=== PATIENT | female | born 1965 | race Asian ===

== ENCOUNTER → 2016-09-20 | Outpatient (CLI) | payer BC ==
[2006-01-13 07:08] VITALS: TEMP 98.8
== END ==
LOC: MC.RAD 11:16
DX: Z12.31 Encounter for screening mammogram for malignant neoplasm of breast (principal)

== ENCOUNTER → 2018-09-17 | Outpatient (CLI) | payer BC ==
[2006-01-13 07:08] VITALS: TEMP 98.8
== END ==
LOC: MC.RAD 13:09
DX: Z12.31 Encounter for screening mammogram for malignant neoplasm of breast (principal)

== ENCOUNTER → 2021-09-27 | Outpatient (CLI) | payer BC ==
[2006-01-13 07:08] VITALS: TEMP 98.8
== END ==
LOC: MC.RAD 13:26
DX: Z12.31 Encounter for screening mammogram for malignant neoplasm of breast (principal)

== ENCOUNTER 2022-09-22 08:28 | Inpatient (IN) | payer SELFPAY ==
[~2022-09-22] VITALS: Ht 167.6 cm; Wt 61.5 kg
[2022-09-22] VITALS (12 sets, daily range): BP systolic 148–184; BP diastolic 68–83; PULSE 65–80; TEMP 97.9–98.3
[2022-09-22 09:10] LABS: COLLECTION METHOD CLEAN CATCH
[2022-09-22 09:15] LABS: BASO % 0.3 % (0.0-2.0); EOS % 0.1 % (0.0-4.0); GRAN # 7.7 K/mm3 (1.4-6.5); GRAN % 88.6 % (42.2-75.2); HEMATOCRIT 44.4 % (37.0-47.0); HEMOGLOBIN 15.7 g/dl (12.5-16.0); LYMPH # 0.7 K/mm3 (1.2-3.4); LYMPH % 7.4 % (20.0-51.0); MEAN CELL VOLUME 85 fl (80.0-100.0); MEAN CORPUSCULAR HEMOGLOBIN 30 pg (27-31); MEAN CORPUSCULAR HGB CONC 35 g/dl (33.0-37.0); MEAN PLATELET VOLUME 11.1 fl (7.4-10.4); MONO # 0.3 K/mm3 (0.1-0.6); MONO % 3.4 % (1.7-9.3); PLATELET COUNT 153 K/mm3 (130-400); REDCELL DISTRIBUTION WIDTH-CV 12.3 % (11.5-14.5)
[2022-09-22 09:17] LABS: MUCOUS Present (NOT PRESENT); SQUAMOUS EPITHELIAL None Seen /hpf (0-10); URINE BACTERIA None Seen /hpf (NONE SEEN)
[2022-09-22 09:29] LABS: PH 8.5 (5.0-8.5); URINE APPEARANCE Clear (CLEAR/HAZY); URINE BLOOD Negative (NEGATIVE); URINE COLOR Yellow (YELLOW); URINE GLUCOSE TRACE (NEGATIVE); URINE KETONE 1+ (NEGATIVE); URINE NITRATE Negative (NEGATIVE); URINE PROTEIN(semi-quant) 1+ (NEGATIVE); URINE UROBILINOGEN 0.2 E.U/dL (0.2-1.0)
[2022-09-22 09:30] LABS: ALBUMIN 4.7 gm/dL (3.5-5.0); BILIRUBIN,TOTAL 1.3 mg/dL (0.2-1.2); C-REACTIVE PROTEIN 0.11 mg/dL (0.00-0.50); CALCIUM 9.8 mg/dL (8.4-10.2); CREATININE, serum 0.75 mg/dL (0.57-1.11); POTASSIUM 3.7 mmol/L (3.5-4.5); TOTAL PROTEIN 8.1 gm/dL (6.2-8.1)
[2022-09-22] MEDS ORDERED: PRINIVIL40 MG PO (11:53)
[2022-09-22] MEDS ORDERED: AMBIEN 10MG10 MG PO (11:54)
[2022-09-22] MEDS ORDERED: VITAMIN D31000 I1 PO (11:55)
[2022-09-22] MEDS ORDERED: NEXIUM 40MG40 MG PO (11:56)
[2022-09-23] VITALS (16 sets, daily range): BP systolic 116–170; BP diastolic 59–83; PULSE 73–94; TEMP 98.1–99.2
--- NOTE | 2022-09-23 05:35 | NUR ---
ASSESSMENT COMPLETED, SEE DOCUMENTATION. PT HAS CONTINUED C/O PAIN RELIEVED BY MORPHINE IV Q2H. PT HAS BEEN NPO SINCE 0000. PT HAD ONE EMESIS EPSIODE AROUND 0000 BUT NO N/V SINCE. CALL LIGHT IN PLACE. ALL NEEDS MET AT THIS TIME.
[2022-09-23 06:35] LABS: BASO % 0.1 % (0.0-2.0); GRAN # 8.4 K/mm3 (1.4-6.5); GRAN % 88.1 % (42.2-75.2); HEMATOCRIT 39.9 % (37.0-47.0); HEMOGLOBIN 14.4 g/dl (12.5-16.0); LYMPH # 0.5 K/mm3 (1.2-3.4); LYMPH % 5.4 % (20.0-51.0); MEAN CELL VOLUME 84 fl (80.0-100.0); MEAN CORPUSCULAR HEMOGLOBIN 30 pg (27-31); MEAN CORPUSCULAR HGB CONC 36 g/dl (33.0-37.0); MEAN PLATELET VOLUME 11.7 fl (7.4-10.4); MONO # 0.6 K/mm3 (0.1-0.6); MONO % 6.1 % (1.7-9.3); PLATELET COUNT 139 K/mm3 (130-400); RED BLOOD COUNT 4.77 M/mm3 (4.10-5.30); REDCELL DISTRIBUTION WIDTH-CV 12.4 % (11.5-14.5)
[2022-09-23 06:39] LABS: ALBUMIN 3.9 gm/dL (3.5-5.0); BILIRUBIN,TOTAL 6.2 mg/dL (0.2-1.2); CALCIUM 8.7 mg/dL (8.4-10.2); CREATININE, serum 0.56 mg/dL (0.57-1.11); POTASSIUM 3.1 mmol/L (3.5-4.5); TOTAL PROTEIN 6.7 gm/dL (6.2-8.1)
--- NOTE | 2022-09-23 08:03 | NUR ---
pt resting in bed. meds given w sips of water. vss and tele in place. pt rates pain a 5/10. fluids infusing in LAC. pt denies nausea/vomiting. consent signed for surgery and placed on chart. call light in reach. no needs at this time.
--- NOTE | 2022-09-23 09:39 | NUR ---
Clinical Rn Manager met with Patient at bedside to conduct Care Managment Assessment and discuss discharge planning. Patient lives with her in [place], [place]. Patient is established with PCP Dr. Villeda and states to use [facility] for Rx needs. Patient is covered by [facility] for insurance. Patient denies the use of O2 and DME for ambulating prior to admission and endorses independent ADL/IADLs. Patient does not have DPOA-HC and declines forms at this time. Discharge Plan: Home
--- NOTE | 2022-09-23 12:12 | NUR ---
Travel Registered Nurse Nicu attempted to contact Patient's , the number on file is not a working number.
--- NOTE | 2022-09-23 14:07 | NUR ---
pt off the floor for surgery
--- NOTE | 2022-09-23 20:35 | NUR ---
Patient assessed at this time, see shift assessment, denies pain at this time, with IV infusing well on left AC, NS at 100cc/hr, with 5 lap sites edges well approximated, denies nausea, hasn't passed gas yet, encouraged ambulation but refused at this time, ERAS protocol implemented, denies further needs, call light and personal items within reach.
[2022-09-24] VITALS (9 sets, daily range): BP systolic 117–134; BP diastolic 54–86; PULSE 75–92; TEMP 97.9–99.6
--- NOTE | 2022-09-24 04:55 | NUR ---
Patient called with c/o pain, PS of 6/10, IV morphine given.
[2022-09-24 07:08] LABS: BASO % 0.1 % (0.0-2.0); GRAN # 7.7 K/mm3 (1.4-6.5); GRAN % 88.7 % (42.2-75.2); LYMPH # 0.5 K/mm3 (1.2-3.4); LYMPH % 5.2 % (20.0-51.0); MEAN CELL VOLUME 85 fl (80.0-100.0); MEAN CORPUSCULAR HGB CONC 35 g/dl (33.0-37.0); MEAN PLATELET VOLUME 11.6 fl (7.4-10.4); MONO # 0.5 K/mm3 (0.1-0.6); MONO % 5.4 % (1.7-9.3); PLATELET COUNT 135 K/mm3 (130-400); RED BLOOD COUNT 4.14 M/mm3 (4.10-5.30); REDCELL DISTRIBUTION WIDTH-CV 12.8 % (11.5-14.5)
[2022-09-24 07:10] LABS: HEMATOCRIT 35.3 % (37.0-47.0); HEMOGLOBIN 12.3 g/dl (12.5-16.0); MEAN CORPUSCULAR HEMOGLOBIN 30 pg (27-31)
[2022-09-24 07:24] LABS: ALBUMIN 3.2 gm/dL (3.5-5.0); BILIRUBIN,TOTAL 6.3 mg/dL (0.2-1.2); CALCIUM 8.6 mg/dL (8.4-10.2); CREATININE, serum 0.6 mg/dL (0.57-1.11); MAGNESIUM 1.8 mg/dL (1.6-2.6); POTASSIUM 3.9 mmol/L (3.5-4.5); TOTAL PROTEIN 5.9 gm/dL (6.2-8.1)
--- NOTE | 2022-09-24 08:02 | NUR ---
Patient resting in bed this am, rating pain 8/10 to abdomen. Prn morphine requested. She is also having "dry heaving" no emesis, PRN zofran given. Patient has no interest in clear liquids besides water this am. Ivf per orders. Strict I&O. Activity & hygiene encouraged. Will monitor
--- NOTE | 2022-09-24 08:44 | NUR ---
Patient spouse at bedside, patient still having pain, complaints of headache. called & new orders obtained. She reports nausea is resolved. Breakfast ordered. Juice & coffee provided
--- NOTE | 2022-09-24 11:02 | NUR ---
Patient resting, I did make RT aware of orders for IS.
--- NOTE | 2022-09-24 12:23 | NUR ---
stopped by and visited briefly with patient. Nothing else needed at this time.
--- NOTE | 2022-09-24 12:39 | NUR ---
Patient resting on IPAD. She reports feeling much better than she did this am. Will monitor
--- NOTE | 2022-09-24 15:43 | NUR ---
Ileana resting in bed, looking at Ipad. Patient was up and ambulated the hallsways with her family at did well. Denies pain and nausea at this time. Will monitor
--- NOTE | 2022-09-24 18:11 | NUR ---
Patient continues to feel better, appetite improving. Iv to Int, Po fluid intake encouraged. She is independent in room. Will report off to nightnurse
--- NOTE | 2022-09-24 20:04 | NUR ---
Patient assessed at this time, see shift assessment, reports pain upon movement medicated with ibuprofen, INT to left AC infusing well, denies nausea, encouraged ambulation but refused at this time, she wanted to sleep, denies further needs at this time, call light and personal items within reach, will continue to monitor.
[2022-09-25] VITALS (10 sets, daily range): BP systolic 104–134; BP diastolic 51–72; PULSE 68–75; TEMP 98.5–99.4
--- NOTE | 2022-09-25 00:38 | NUR ---
Patient called with c/o nausea, IV zofran given. Patient also reports she couldn't go back to sleep, called Bridger, the PA and received a one time order for melatonin.
--- NOTE | 2022-09-25 06:09 | NUR ---
Patient reports she is a little bit nauseated, offered IV phenergan but she wanted to wait for zofran which is due at 0800, denies further needs at this time, will report off to dayspaft nurse.
[2022-09-25 06:48] LABS: BASO % 0.3 % (0.0-2.0); EOS % 0.5 % (0.0-4.0); GRAN # 4.7 K/mm3 (1.4-6.5); GRAN % 77.2 % (42.2-75.2); HEMOGLOBIN 11.2 g/dl (12.5-16.0); LYMPH # 0.9 K/mm3 (1.2-3.4); LYMPH % 14.3 % (20.0-51.0); MEAN CELL VOLUME 86 fl (80.0-100.0); MEAN CORPUSCULAR HEMOGLOBIN 30 pg (27-31); MEAN CORPUSCULAR HGB CONC 35 g/dl (33.0-37.0); MEAN PLATELET VOLUME 11.8 fl (7.4-10.4); MONO # 0.5 K/mm3 (0.1-0.6); MONO % 7.4 % (1.7-9.3); PLATELET COUNT 123 K/mm3 (130-400)
[2022-09-25 06:50] LABS: HEMATOCRIT 31.8 % (37.0-47.0)
[2022-09-25 07:00] LABS: ALBUMIN 3.2 gm/dL (3.5-5.0); BILIRUBIN,TOTAL 2.5 mg/dL (0.2-1.2); CALCIUM 8.2 mg/dL (8.4-10.2); CREATININE, serum 0.63 mg/dL (0.57-1.11); POTASSIUM 3.5 mmol/L (3.5-4.5); TOTAL PROTEIN 5.6 gm/dL (6.2-8.1)
--- NOTE | 2022-09-25 09:27 | NUR ---
patient lying in bed alert and oriented x4. per patient request, ibuprofen given for nausea and headache rated 6/10. Lapy abd incisions x5 noted to be clean, dry, and intact with minimal bruising around the upper midline site. patient requested to walk at later time and has no further needs, question, or concerns at this time. will continue to monitor.
--- NOTE | 2022-09-25 10:00 | NUR ---
Pt does not have an incentive spirometer, notified Rekha with RT
--- NOTE | 2022-09-25 18:12 | NUR ---
patient lying in bed alert and oriented. per pt request, given ibuprofen for headache and nausea rated as a 6/10. patient has no further needs, questions, or concerns at this time. call light within reach, continued care to be passed to slot shift supervisor nurse.
--- NOTE | 2022-09-25 21:32 | NUR ---
PT IN BED, REPORTS HEADACHE. HS MEDS GIVEN INCLUDING MOTRIN FOR PAIN. ABD SOFT WITH ACTIVE BS. PT REPORTS DIARRHEA. ROBOTIC SITES X5 GLUED AND DRY. MILDLY JAUNDICE. INT TO LAC.
--- NOTE | 2022-09-25 22:00 | NUR ---
DR OVALLE CALLS, MAKES PT NPO FOR POSSIBLE ERCP TOMORROW IF BILIRUBIN DOESN'T KEEP TRENDING DOWN.
[2022-09-26 00:18] VITALS: BP_SYST 104
[2022-09-26 03:12] VITALS: BP 120/64; PULSE 68; TEMP 99.1
[2022-09-26 04:31] VITALS: BP_SYST 120
--- NOTE | 2022-09-26 05:12 | NUR ---
PT REPORTS HEADACHE, WANTS IBUPROFEN, MEDICATED AT THIS TIME WITH SCHEDULED AM MEDS. PT AWARE SHE IS NOT TO HAVE BREAKFAST UNTIL LABS ARE BACK, IS NPO PER ORDER OF DR OVALLE.
[2022-09-26 06:40] LABS: BASO % 0.3 % (0.0-2.0); EOS # 0.1 K/mm3 (0.0-0.7); EOS % 1.6 % (0.0-4.0); GRAN # 4.9 K/mm3 (1.4-6.5); GRAN % 77.4 % (42.2-75.2); HEMOGLOBIN 11.8 g/dl (12.5-16.0); LYMPH # 0.8 K/mm3 (1.2-3.4); LYMPH % 13.1 % (20.0-51.0); MEAN CELL VOLUME 85 fl (80.0-100.0); MEAN CORPUSCULAR HEMOGLOBIN 30 pg (27-31); MEAN CORPUSCULAR HGB CONC 36 g/dl (33.0-37.0); MEAN PLATELET VOLUME 11.7 fl (7.4-10.4); MONO # 0.5 K/mm3 (0.1-0.6); MONO % 7.3 % (1.7-9.3); PLATELET COUNT 125 K/mm3 (130-400); RED BLOOD COUNT 3.89 M/mm3 (4.10-5.30); REDCELL DISTRIBUTION WIDTH-CV 12.8 % (11.5-14.5)
[2022-09-26 07:11] LABS: ALBUMIN 3.3 gm/dL (3.5-5.0); BILIRUBIN,TOTAL 2.1 mg/dL (0.2-1.2); CALCIUM 8.7 mg/dL (8.4-10.2); CREATININE, serum 0.62 mg/dL (0.57-1.11); POTASSIUM 3.7 mmol/L (3.5-4.5); TOTAL PROTEIN 6.1 gm/dL (6.2-8.1)
[2022-09-26 07:37] VITALS: BP 127/72; PULSE 68; TEMP 98.5
--- NOTE | 2022-09-26 08:34 | NUR ---
made aware of patient, Bili results of 2.1. Call made to and also made him aware, no plans for prodcedue today. made aware & patient diet resumed.
[2022-09-26 09:09] VITALS: BP_SYST 127
--- NOTE | 2022-09-26 09:11 | NUR ---
patient lying in bed alert and oriented x4. pt denies pain and shortness of breath at this time. slight jaundice of the skin, no yellowing noted in the sclera of the eyes. Bilirubin trending down with todays level at 2.1. Per protocol potassium replaced to get the current level of 3.7 up to 4. Pt has no further needs, questions, or concerns at this time. Call light within reach, will continue to monitor.
[2022-09-26] MEDS ORDERED: CIPRO 500MG TA500 MG PO (09:24)
[2022-09-26] MEDS ORDERED: NORCO 325 MG-51 TAB PO (09:25)
[2022-09-26] MEDS ORDERED: FLAGYL500 MG PO (09:25)
--- NOTE | 2022-09-26 12:10 | NUR ---
patient stable, IV and tele discontinued. discharge insturctions provided to patient and spouse, both report understanding and no further needs, questions, or concerns at this time. Pt self-transfer to wheelchair for discharge at 1100.
[2022-10-08] MEDS ORDERED: OMEGA-31 SGL PO (21:52)
[2022-10-11] MEDS ORDERED: FLAGYL500 MG PO ×3 (10:19→14:47)
[2022-10-11] MEDS ORDERED: CIPRO 500MG TA500 MG PO ×3 (10:19→14:47)
== END 2022-09-26 11:00 | disposition home or self-care (01) | DRG 419 ==
LOC: COL.ER 08:28 → SURG 11:36 → COL.ER 11:52 → SURG 11:52
PROVIDERS: Family Medicine; Internal Medicine Gastroenterology; Physician Assistant; ADMIT Hospitalist
PROC: 0FC98ZZ Extirpation of Matter from Common Bile Duct, Via Natural or Artificial Opening Endoscopic (ICD-10-PCS; principal; 2022-09-22 13:00)
PROC: 0FT44ZZ Resection of Gallbladder, Percutaneous Endoscopic Approach (ICD-10-PCS; 2022-09-23)
PROC: 8E0W4CZ Robotic Assisted Procedure of Trunk Region, Percutaneous Endoscopic Approach (ICD-10-PCS; 2022-09-23)
DX: K80.42 Calculus of bile duct with acute cholecystitis without obstruction (principal); K21.9 Gastro-esophageal reflux disease without esophagitis; F32.A Depression, unspecified; G47.00 Insomnia, unspecified; I16.0 Hypertensive urgency; R73.9 Hyperglycemia, unspecified; E87.6 Hypokalemia; I10 Essential (primary) hypertension; E80.6 Other disorders of bilirubin metabolism; D64.9 Anemia, unspecified; Z87.891 Personal history of nicotine dependence
CPT/HCPCS: C1769; J0690; J1100; J1170; J1790; J1885; J1920; J2270; J2371; J2405; J2704; J3010; J3480; J7030; J7120; Q9967